=== PATIENT | female | born 1950 | race Caucasian/White ===

== ENCOUNTER → 2017-01-04 | Outpatient (CLI) | payer MEDICARE ==
--- NOTE | 2017-01-09 11:26 | MM ---
Reason for exam: screening (asymptomatic). Last mammogram was performed 1 year and 1 month ago. History: Patient is postmenopausal and had first child at age 31. Family history of breast cancer in paternal aunt at age 50. Took estrogen for 1 year. Took progesterone for 1 year. Physical Findings: A clinical breast exam by your physician is recommended on an annual basis and results should be correlated with mammographic findings. MG 3D Screening Mammo W/Cad Bilateral CC and MLO view(s) were taken. Prior study comparison: December 20, 2015, bilateral MG 3d screening mammo w/cad. December 17, 2014, bilateral MG screening mammo w CAD. November 24, 2013, bilateral digital screening mammo w/CAD. The breast tissue is heterogeneously dense. This may lower the sensitivity of mammography. Finding: There are typically benign round, grouped diffuse/scattered calcifications in both breasts. No significant changes in finding since December 20, 2015, December 17, 2014, and November 24, 2013. ASSESSMENT: Benign, BI-RAD 2 RECOMMENDATION: Routine screening mammogram of both breasts in 1 year.
== END | disposition home or self-care (01) ==
LOC: RADMAMWWP 11:17
PROVIDERS: ATTEND Obstetrics & Gynecology
DX: Z12.31 Encounter for screening mammogram for malignant neoplasm of breast (principal); R92.1 Mammographic calcification found on diagnostic imaging of breast
CPT/HCPCS: 77063; G0202

== ENCOUNTER → 2018-01-10 | Outpatient (CLI) | payer MEDICARE ==
--- NOTE | 2018-01-11 10:43 | MM ---
Reason for exam: screening (asymptomatic). Last mammogram was performed 1 year ago. History: Patient is postmenopausal and had first child at age 31. Family history of breast cancer in paternal aunt at age 50. Took estrogen for 1 year. Took progesterone for 1 year. Physical Findings: A clinical breast exam by your physician is recommended on an annual basis and results should be correlated with mammographic findings. MG 3D Screening Mammo W/Cad Bilateral CC and MLO view(s) were taken. Prior study comparison: January 04, 2017, bilateral MG 3d screening mammo w/cad. December 20, 2015, bilateral MG 3d screening mammo w/cad. The breast tissue is extremely dense which could obscure a lesion on mammography. Finding: There are typically benign round, diffuse/scattered and grouped calcifications in both breasts, greater in the left breast. Asymmetric breast tissue in the left breast is stable. There is no discrete abnormality. Benign bilateral axillary lymph nodes redemonstrated. ASSESSMENT: Benign, BI-RAD 2 RECOMMENDATION: Routine screening mammogram of both breasts in 1 year.
== END | disposition home or self-care (01) ==
LOC: RADMAMWWP 13:48
PROVIDERS: ATTEND Family Medicine
DX: Z12.31 Encounter for screening mammogram for malignant neoplasm of breast (principal)
CPT/HCPCS: 77063; 77067

== ENCOUNTER → 2019-02-17 | Outpatient (CLI) | payer MEDICARE ==
--- NOTE | 2019-02-19 08:52 | MM ---
Reason for exam: screening (asymptomatic). Last mammogram was performed 1 year and 1 month ago. History: Patient is postmenopausal and had first child at age 31. Family history of breast cancer in paternal aunt at age 50. Took estrogen for 1 year. Took progesterone for 1 year. Physical Findings: A clinical breast exam by your physician is recommended on an annual basis and results should be correlated with mammographic findings. MG 3D Screening Mammo W/Cad Bilateral CC and MLO view(s) were taken. Prior study comparison: January 10, 2018, bilateral MG 3d screening mammo w/cad. January 04, 2017, bilateral MG 3d screening mammo w/cad. The breast tissue is heterogeneously dense. This may lower the sensitivity of mammography. Scattered grouped and regional punctate calcifications are unchanged. No significant changes when compared with prior studies. ASSESSMENT: Benign, BI-RAD 2 RECOMMENDATION: Routine screening mammogram of both breasts in 1 year. Patient should continue monthly self breast exams. A negative report should not preclude additional follow up of suspicious palpable abnormalities.
== END | disposition home or self-care (01) ==
LOC: RADMAMWWP 13:37
PROVIDERS: ATTEND Family Medicine
DX: Z12.31 Encounter for screening mammogram for malignant neoplasm of breast (principal)
CPT/HCPCS: 77063; 77067

== ENCOUNTER → 2019-10-24 | Day surgery (SDC) | payer MEDICARE ==
[2019-10-20 09:55] VITALS: BMI 24.6
[~2019-10-24] MED LIST: LACTATED RINGERS 1,000 ML IV SCH; LIDOCAINE 1% (10MG/ML) FOR IV START INTRADERMA PRN; PROPOFOL 10 MG/ML 20 ML VIAL IV ONE
[2019-10-24 13:23] VITALS: RESP 16
--- NOTE | 2019-10-24 14:08 | P.PCN ---
Date of Procedure: 10/24/19 Procedure(s) Performed: BRIEF HISTORY: Patient is a 69-year-old pleasant white female scheduled for an elective colonoscopy as a part of value should of prior history of colon polyps. Last colonoscopy was in 2013 and was noted to have a tubular adenoma PROCEDURE PERFORMED: Colonoscopy. PREOPERATIVE DIAGNOSIS: History of colon polyps. IV sedation per Anesthesia. PROCEDURE: After informed consent was obtained, the patient, was brought into the endoscopy unit. IV sedation was administered by Anesthesia under continuous monitoring. Digital rectal examination was normal. Initially the Olympus CF-160 flexible video colonoscope was then inserted in the rectum, gradually advanced into the cecum without any difficulty. Careful examination was performed as the scope was gradually being withdrawn. Ileocecal valve and the appendiceal orifice were visualized and appeared normal. Prep was poor and several areas of the colon. Thorough irrigation was performed. The colon appeared very tortuous. The cecum could not be adequately visualized because of retained stool in this area.. Mucosa of the ascending colon, transverse colon, descending colon, sigmoid colon, and rectum appeared normal. Retroflexion was performed in the rectum and no lesions were seen. The patient tolerated the procedure well. IMPRESSION: Normal-appearing colon from rectum to cecum with no evidence of colorectal neoplasia Somewhat poor prep in some areas of the colon . RECOMMENDATIONS: Findings of this examination were discussed with the patient as well as a family. She was advised to have a repeat surveillance colonoscopy in 5 years from now because of the prior history of colon polyps.
[2019-10-24 14:33] VITALS: BP 127/81; PULSE 65
== END ==
LOC: ORWHC2ENDO 12:39
PROVIDERS: ATTEND Internal Medicine Gastroenterology
DX: Z12.11 Encounter for screening for malignant neoplasm of colon (principal); Z86.010 Personal history of colon polyps; Q43.8 Other specified congenital malformations of intestine; G43.909 Migraine, unspecified, not intractable, without status migrainosus; J44.9 Chronic obstructive pulmonary disease, unspecified; Z88.0 Allergy status to penicillin; Z87.891 Personal history of nicotine dependence; Z79.899 Other long term (current) drug therapy
CPT/HCPCS: J2704; G0105; 45378

== ENCOUNTER → 2020-05-20 | Outpatient (CLI) | payer MEDICARE ==
--- NOTE | 2020-05-24 08:51 | MM ---
Reason for exam: screening (asymptomatic). Last mammogram was performed 1 year and 3 months ago. History: Patient is postmenopausal, history of other cancer, and had first child at age 31. Family history of breast cancer in paternal aunt at age 50. Took estrogen for 1 year. Took progesterone for 1 year. Physical Findings: A clinical breast exam by your physician is recommended on an annual basis and results should be correlated with mammographic findings. MG 3D Screening Mammo W/Cad Bilateral CC and MLO view(s) were taken. Prior study comparison: February 17, 2019, bilateral MG 3d screening mammo w/cad. January 10, 2018, bilateral MG 3d screening mammo w/cad. The breast tissue is extremely dense which could obscure a lesion on mammography. Finding: There are typically benign skin calcifications in both breasts. No significant changes in finding since February 17, 2019 and January 10, 2018. ASSESSMENT: Benign, BI-RAD 2 RECOMMENDATION: Routine screening mammogram of both breasts in 1 year.
== END | disposition home or self-care (01) ==
LOC: RADMAMWWP 11:48
PROVIDERS: ATTEND Family Medicine
DX: Z12.31 Encounter for screening mammogram for malignant neoplasm of breast (principal)
CPT/HCPCS: 77063; 77067

== ENCOUNTER → 2020-08-20 | Outpatient (CLI) | payer MEDICARE ==
[2020-08-20 16:12] LABS: African American GFR (CKD) >90 (>60 ml/min/1.73 sqM); Blood Urea Nitrogen 15 mg/dL (7-17); Non-African American GFR(CKD) >90 (>60 ml/min/1.73 sqM)
--- NOTE | 2020-08-24 13:06 | CT ---
EXAMINATION TYPE: CT urogram wo/w con DATE OF EXAM: 08/20/2020 HISTORY: Hematuria and frequent UTI's CT DLP: 1208.8mGycm Automated Exposure Control for Dose Reduction was Utilized. CONTRAST: CT scan of the abdomen and pelvis is performed without and with IV Contrast, patient injected with 10 0 mL of Isovue 300. COMPARISON: None FINDINGS: LUNG BASES: The heart is enlarged. Lung bases are clear. LIVER/GB: No significant abnormality is appreciated. PANCREAS: No significant abnormality is seen. SPLEEN: No significant abnormality is seen. ADRENALS: No significant abnormality is seen. KIDNEYS: No hydronephrosis or nephrolithiasis bilaterally. There is normal enhancement of the bilater al kidneys. No solid or cystic mass identified. BOWEL: No significant abnormality is seen. UTERUS/ADNEXA: No gross abnormality seen. LYMPH NODES: No greater than 1cm abdominal or pelvic lymph nodes are appreciated. OSSEOUS STRUCTURES: Small Tarlov cyst involving the sacrum. Hypertrophic and degenerative changes of the spine.. OTHER: No significant additional abnormality is seen. IMPRESSION: 1. No evidence of hydronephrosis, nephrolithiasis or solid or cystic renal mass. No bladder calculi. No filling defect within the visualized renal pelvis or ureter. Bladder limited by artifact from the right hip prostheses demonstrates no gross abnormality.
== END | disposition home or self-care (01) ==
LOC: RADCTMAIN 15:31
PROVIDERS: ATTEND Urology
DX: R31.9 Hematuria, unspecified (principal); Z88.0 Allergy status to penicillin
CPT/HCPCS: 82565; 84520; 74178; 36415; 74400; Q9967

== ENCOUNTER → 2021-06-13 | Outpatient (CLI) | payer MEDICARE ==
--- NOTE | 2021-06-15 10:42 | MM ---
Reason for exam: screening (asymptomatic). Last mammogram was performed 1 year and 1 month ago. History: Patient is postmenopausal, history of other cancer, and had first child at age 31. Family history of breast cancer in paternal aunt at age 50. Took estrogen for 1 year. Took progesterone for 1 year. Physical Findings: A clinical breast exam by your physician is recommended on an annual basis and results should be correlated with mammographic findings. MG 3D Screening Mammo W/Cad Bilateral CC and MLO view(s) were taken. Prior study comparison: May 20, 2020, bilateral MG 3d screening mammo w/cad. February 17, 2019, bilateral MG 3d screening mammo w/cad. January 10, 2018, bilateral MG 3d screening mammo w/cad. The breast tissue is extremely dense which could obscure a lesion on mammography. No significant changes when compared with prior studies. ASSESSMENT: Benign, BI-RAD 2 RECOMMENDATION: Routine screening mammogram of both breasts in 1 year.
== END | disposition home or self-care (01) ==
LOC: RADMAMWWP 13:39
PROVIDERS: ATTEND Family Medicine
DX: Z12.31 Encounter for screening mammogram for malignant neoplasm of breast (principal); Z80.3 Family history of malignant neoplasm of breast; Z78.0 Asymptomatic menopausal state
CPT/HCPCS: 77063; 77067

== ENCOUNTER → 2021-09-21 | Outpatient (CLI) | payer MEDICARE ==
--- NOTE | 2021-09-21 12:53 | CONS ---
CONSULTATION DATE OF SERVICE: 09/21/2021 This 71-year-old lady has been evaluated in Sleep Center for possible obstructive sleep apnea-hypopnea syndrome. HISTORY OF PRESENT ILLNESS/SLEEP-WAKE EVALUATION: The patient had a home sleep test done about 5 years ago, and at that time she was told she had mild abnormalities of respiration. She was not treated at that time. At present, her sleep schedule is from 11:30 p.m. until 8:30 a.m.. She wakes up from sleep up to 6 times with up to 2 episodes of nocturia. She has episodes of awakening also with a racing heart during sleep time. No problems with falling asleep, although she likes to read in the bedroom. She usually sleeps on the side position. According to her , she does not snore. No history of hypnagogic hallucinations, sleep paralysis or cataplexy. During the day, the patient may feel drowsy. [place] Sleepiness Scale, though, is 3. PAST MEDICAL HISTORY: Positive for asthma and sinus problems. PAST SURGICAL HISTORY: Right hip arthroplasty surgery, hernia repair, sinus surgery. SOCIAL HISTORY: Negative for smoking. Alcohol consumption occasional. MEDICATIONS: 1. Montelukast 10 mg once a day. 2. Albuterol if necessary. REVIEW OF SYSTEMS: Multiple awakenings from sleep. No fevers. No double vision. No recent chest pain. No shortness of breath. No abdominal pain. No bleeding episodes. No blood in the urine. No seizure episodes. PHYSICAL EXAMINATION: GENERAL: Pleasant lady without distress. VITAL SIGNS: BP 134/91, HR 73, RR 16, height 5 feet 4-3/4 inches, weight 163 pounds, body mass index 27.3, temperature 96.1, oxygen saturation at room air 99%. HEENT: PERRLA, EOMI, evaluation of oropharynx showed tongue protrudes midline. Low position of soft palate; Mallampati III. NECK: Supple, no JVD. Thyroid is not palpable. Neck measures 16 inches in circumference. LUNGS: Clear to percussion and to auscultation. Good air exchange. No wheezing or rhonchi. HEART: S1, S2 regular. No murmurs, gallops, or rubs. ABDOMEN: Soft and nontender. Bowel sounds are present. No organomegaly appreciated. EXTREMITIES: No clubbing or cyanosis. RAIL SETTER: Awake, alert, and oriented X3. Cranial nerves 2 to 7 intact. There is no fasciculation or atrophy. noted. No focal deficits observed. IMPRESSION: 1. Multiple awakenings from sleep up to 6 times, low position of soft palate, Mallampati III, wide neck, 16 inches in circumference, episodes of sleepiness during the day, history of mild obstructive sleep apnea documented about 5 years ago, according to the patient by home sleep apnea test; obstructive sleep apnea- hypopnea syndrome. 2. Asthma. 3. Sinus problems, status post sinus surgery. 4. Status post right hip arthroplasty. 5. Status post hernia repair. 6. Episodes of palpitations during sleep. PLAN: 1. Polysomnography for evaluation of patient's breathing during sleep. 2. CPAP/BiPAP titration if sleep study confirms obstructive sleep apnea-hypopnea syndrome. 3. Preferable position during sleep on the side. 4. No driving if patient feels any sleepiness. 5. I will see patient for follow up visit to explain results of testing and following plan. Thank you very much for referring this patient for consultation. Sincerely, Won Glez MD, PhD, FAASM Diplomat of [employer] Sleep Medicine Board of [place] [employer]visor [employer] [facility] [place] MMODL / IJN: [id number] /
== END ==
LOC: SLEEP 11:40
PROVIDERS: ATTEND Internal Medicine
DX: G47.33 Obstructive sleep apnea (adult) (pediatric) (principal); J45.909 Unspecified asthma, uncomplicated; J34.9 Unspecified disorder of nose and nasal sinuses; R00.2 Palpitations; Z79.51 Long term (current) use of inhaled steroids; Z87.891 Personal history of nicotine dependence; Z96.641 Presence of right artificial hip joint; Z98.890 Other specified postprocedural states; Z88.1 Allergy status to other antibiotic agents
CPT/HCPCS: 99211

== ENCOUNTER → 2021-11-24 | Outpatient (CLI) | payer MEDICARE ==
--- NOTE | 2021-11-24 19:48 | SFUN ---
SLEEP CENTER FOLLOW UP NOTE DATE OF SERVICE: 11/24/2021 This 71-year-old lady has come to the sleep center to discuss results of her diagnostic polysomnogram and following plan. I discussed results of diagnostic polysomnogram with the patient in detail. Sleep study did not show any significant abnormalities of respiration; normal oxygenation during sleep. At the same time, a significant amount of periodic limb movements was documented: 41.2 times per hour but with only 0.8 microarousals per hour. The patient is not experiencing any significant clinical symptoms related to her leg movements, although she was told by her family that she does have movements of her legs at night. Recently her iron profile was checked, and the level of iron was slightly low; close to border also according to patient. [place] Sleepiness Scale today is 2, which is normal. MEDICATIONS: Montelukast, ipratropium, . PHYSICAL EXAMINATION: GENERAL: Pleasant patient in no distress. VITAL SIGNS: BP 143/96, HR 76, RR 16, weight 163, height 5 feet 5 inches, body mass index 27.5, temperature 98.2, oxygen saturation at room air 98%. HEENT: PERRLA, EOMI, evaluation of oropharynx showed tongue protrudes midline. Low position of soft palate; Mallampati III. NECK: Supple, no JVD. Thyroid is not palpable. LUNGS: Clear to percussion and to auscultation. Good air exchange. No wheezing or rhonchi. HEART: S1, S2 regular. No murmurs, gallops, or rubs. ABDOMEN: Soft and nontender. Bowel sounds are present. No organomegaly appreciated. EXTREMITIES: No clubbing or cyanosis. DIESEL TRUCK TECHNICIAN: Awake, alert, and oriented X3. Cranial nerves 2 to 7 intact. There is no fasciculation or atrophy. noted. No focal deficits observed. IMPRESSION: 1. No significant respiratory abnormalities during the sleep study. 2. Significant periodic limb movements were documented, but only with few microarousals related to leg movements. [place] Sleepiness Scale is normal. The patient does not have clinical complaints of leg movements. 3. Asthma. 4. Sinus problems. 5. Status post right hip arthroplasty. 6. Status post hernia repair. PLAN: 1. Sleep hygiene with regular time in bed for 7-1/2 to 8 hours. 2. Preferable position during sleep is on the side. 3. Iron supplement. 4. We discussed with the patient the possibility of starting pharmacotherapy for periodic limb movements but agreed that for now it is probably not necessary, considering any risk of side effects of medications. 5. No driving if feeling sleepiness; at present no sleepiness. 6. If necessary, follow-up visit in one year. Thank you very much for allowing me to participate in the management of your patient. Sincerely, Won Glez MD, PhD, FAASM Diplomat of [place] [employer] Sleep Medicine Board of [place] [employer] [facility] [place] MMODL / ELLEN: [id number] /
== END ==
LOC: SLEEP 16:30
PROVIDERS: ATTEND Internal Medicine
DX: G47.61 Periodic limb movement disorder (principal); J45.909 Unspecified asthma, uncomplicated; Z96.641 Presence of right artificial hip joint; Z98.890 Other specified postprocedural states; J34.9 Unspecified disorder of nose and nasal sinuses; Z88.1 Allergy status to other antibiotic agents

== ENCOUNTER → 2021-12-19 | Outpatient (CLI) | payer MEDICARE ==
--- NOTE | 2021-12-19 11:40 | P.CON ---
Consult Note - . Consult date: 12/19/21 Assessment/Plan:: HISTORY OF PRESENT ILLNESS: 71 yr old female as a referral from Dr Bell presents today with chronic & severe cervical pain & tingling secondary to disc bulges, neuroforaminal stenoses, facet arthropathy and spinal stenosis for evaluation. Pt states her cervical tingling is 4/10 in intensity, waxes & wanes throughout the day and is exacerbated with extension of the head. It is relieved with medications (Tramadol, Tylenol OTC from Dr Bell), PT in the past, home based stretching regimen at bedtime, massage therapy twice a month, injections of the R NADINE in 06/2021 with 100% pain relief, soft c collar use, repositioning and rest. Past Medical History / Comment(s): Asthma, Migraines, Seasonal Allergies Past Surgical History / Comment(s): Carpal Tunnel Release, Bunionectomy Social History: Never smoker, Occasional ETOH use, No illicit drug use. Family History: Non contributory All: See list Meds: See list REVIEW OF ORGAN SYSTEMS: CONSTITUTIONAL: No fevers or chills. No recent weight loss. HEENT: No visual acuity loss, eye pain, difficulties with hearing. No nosebleeds. No difficulty swallowing. RESPIRATORY: Denies any troubles with breathing or dyspnea on exertion. CARDIOVASCULAR: Denies any chest pain, palpitations, or recent heart attacks. GASTROINTESTINAL: Denies fatty food intolerance. Has change in bowel habits and gas bloat. GENITOURINARY: Denies any blood in urine. Has increased urinary frequency. NEUROLOGICAL: + numbness and tingling along the distal extremities. No seizure disorders or headaches. MUSCULOSKELETAL: + back pain SKIN: No skin cancer. No rash. PSYCHIATRIC: Denies current depression or suicidal thoughts. ENDOCRINE: Denies current thyroid disorders. Denies any blood sugar glucose intolerance. HEME/LYMPHATIC: Denies any lumps and bumps around the neck. History of deep venous thrombosis. ALLERGY/IMMUNOLOGY: No immunoglobulin therapy. No immune deficiencies. BREAST: Denies current breast lumps, pain or nipple discharge. Physical Examinations : Constitutional : Cooperative , not in acute distress . HEENT: Neck supple. No Lymphadenopathy. Normal thyroid size . Eyes no ptosis , no icterus, no photophobia . Hearing intact. Normal oropharynx. No Thrush. Respiratory : Chest clear to auscultations bilaterally. No wheezing. No rhonchi. Cardiovascular : Regular rate and rhythm , S1 / S2. No S3 . No S4. Gastrointestinal : Abdomen soft. No tenderness. Bowel sounds x 4. No organomegaly . Genitourinary : Deferred. Neurologic : Cranial nerve II to XII intact. No focal neurological deficits. Psychiatric : alert & oriented x 3. Matching mood & appropriate affect. Judgment & insight intact. Lymphatic No Lymphadenopathy. Musculoskeletal : Cervical Spine Motor strength in the deltoid and biceps: Normal right side. Normal Left side Motor strength biceps and the wrist extensors: Normal right side . Normal left side Motor strength in the triceps muscle: Normal right side. Normal left side Deep tendon reflexes: Normal at the biceps. Normal at Brachioradialis. Normal at triceps Vertebral body tenderness to palpation over C7 Cervical facet loading test: positive on the right Spurling test: positive bilaterally Neck distraction test: positive bilaterally Oracio sign: positive bilaterally Lumbar spine Motor strength lower extremities ,thigh and legs 5/5 Right side , 5/5 Left side Deep tendon reflexes : Normal Knee Jerk. Normal Ankle Jerk Vertebral body tenderness over Lumbar facet Loading Test: positive Right / positive Left Range of motion of the lumbar spine Flexion 30 degrees, extension 10 degrees Straight Leg Raise test: Left/ Right positive at degree Yumi test: positive right / positive left. Severe tenderness over the Sacroiliac joint on the Right / Left sides Gaenslen test: positive bilaterally Seated flexion test: positive bilaterally. Imaging: MRI without contrast of the cervical spine from 11/24/21 reviewed Assessment/ Plan : Recommendation of R C7-T1 interlaminar DAVID #1. May need a series of injections, up to 3 within a 6 mo period, for optimal pain relief. Risks, benefits of procedure discussed and patient verbalized understanding. Denies aspirin or anti- coagulant use or medical history of diabetes. All questions answered. I have spent greater than 50 minutes on patient care today. Dr Mejia was available by phone for the evaluation of this patient. The time was used to review the medical records including relevant urine studies and Prescription history (MAPs), review of the available imaging, evaluation and examination of the patient, coordination of care with the medical staff and if applicable referring physicians, as well as creation of the medical record PQRS Measure Charge Sheet PQRS Narrative: Smoking Status Former smoker Home Medications: Ambulatory Orders Fexofenadine HCl [Sherrell Allergy] 180 mg PO DAILY 12/13/13 Rizatriptan Benzoate [Maxalt] 10 mg PO BID PRN 12/13/13 Albuterol Inhaler (Mhu) [Ventolin Hfa Inhaler] 1 - 2 puff INHALATION Q6HR PRN 02/01/16 Triamcinolone Acetonide [Nasacort] 2 sprays EA NOSTRIL DAILY 02/01/16 Montelukast [Singulair] 10 mg PO DAILY 02/04/16 Ascorbic Acid [Vitamin C] 500 mg PO DAILY 10/20/19 Cholecalciferol [Vitamin D3 (25 Mcg = 1000 Iu)] 1,000 unit PO DAILY 10/20/19 Cyanocobalamin (Vitamin B-12) [Vitamin B-12] 2,500 mcg PO DAILY 10/20/19 Folic Acid 0.8 mg PO DAILY 10/20/19 Glucosamine Sulfate 500 mg PO DAILY 10/20/19 Ipratropium [place] [Ipratropium [place] 0.03%] 2 sprays EA NOSTRIL DAILY 10/20/19
[2021-12-19 11:44] VITALS: BP 140/79; PULSE 73; RESP 18
== END ==
LOC: PNWHC3 11:06
PROVIDERS: ATTEND Specialist
DX: M48.02 Spinal stenosis, cervical region (principal); M47.812 Spondylosis without myelopathy or radiculopathy, cervical region; M50.20 Other cervical disc displacement, unspecified cervical region; J45.909 Unspecified asthma, uncomplicated; G43.909 Migraine, unspecified, not intractable, without status migrainosus; G89.29 Other chronic pain; Z87.891 Personal history of nicotine dependence; Z88.1 Allergy status to other antibiotic agents
CPT/HCPCS: 99211

== ENCOUNTER 2022-01-26 08:24 | Day surgery (SDC) | payer MEDICARE ==
[2022-01-26 08:49] VITALS: RESP 16; TEMP 98.1
[2022-01-26] MEDS ORDERED: LACTATED RINGERS 1,000 ML IV ONE (08:55)
[2022-01-26] MEDS ORDERED: LACTATED RINGERS 1,000 ML IV SCH (09:01)
[2022-01-26] MEDS ORDERED: LIDOCAINE 1% (10MG/ML) FOR IV START INTRADERMA PRN (09:01)
[2022-01-26] MEDS ORDERED: MIDAZOLAM 2 MG/2 ML VIAL ONE (09:04)
[2022-01-26] MEDS ORDERED: DEXAMETHASONE SOD PHOSPHATE 10 MG/ML 1 ML VIAL ONE (09:04)
[2022-01-26] MEDS ORDERED: IOPAMIDOL M200 10 ML VIAL ONE (09:04)
[2022-01-26] MEDS ORDERED: fentaNYL (PF) 50 MCG/ML 2 ML AMP ONE (09:04)
--- NOTE | 2022-01-26 09:22 | P.PCN ---
Date of Procedure: 01/26/22 Procedure(s) Performed: . PROCEDURE 1. Cervical epidural steroid injection under fluoroscopic guidance, C7-T1 (fluoroscopy images available in the radiology department ) 2. Cervical epidurogram. PREOPERATIVE DIAGNOSIS: 1- Cervical Degenerative Disc Diseases . POSTOPERATIVE DIAGNOSIS: : 1- Cervical Degenerative Disc Diseases . ANESTHESIA: Local anesthesia with lidocaine 1 % , and moderate sedation, with Versed 1 mg and Fentanyl 50 mcg. EBL 0 PROCEDURE INDICATION: The patient with neck pain and radiculitis unresponsive to conservative treatment consents for procedure. PROCEDURE DESCRIPTION / TECHNIQUE: The patient was seen and identified in the preoperative area. Risks, benefits, complications, including but not limited to infections ,bleeding , allergic reactions to the medications ,and not complete pain releife, and alternatives were discussed with the patient, the patient agreed to proceed with the procedure and signed the consent. Patient was taken to the OR and time out was completed. The patient was placed in the prone position on the procedure table. A pillow was placed under the patients chest to increase the cervical interlaminar space. The cervical area was prepped and draped in the usual sterile fashion. Vital signs were closely monitored during the procedure. Conscious sedation was used during the procedure to decrease patients anxiety. Using anterior-posterior fluoroscopy, the C7-T1 interlaminar space was identified and the skin over this site was marked and then infiltrated with 1% lidocaine subcutaneously. Subsequently, a 20-gauge 3-1/2-inch Tuohy epidural needle was inserted and advanced toward the epidural space by means of the ``hanging-drop technique and guided by AP and lateral fluoroscopy. The correct needle position in the epidural space was verified with the injection of 2 mL of the water soluble contrast dye Isovue-200 and observing an excellent epidurogram with the epidural spread of the dye, after negative aspiration for blood and CSF and in the absence of paresthesias. then, mixture containing 15 mg Dexamethasone and 2 ml of preservative-free normal saline injected and a washout of epidurogram was seen. Needle was withdrawn intact, skin was cleansed, and bandages were applied. Complications= none. Disposition= patient was placed in supine position and transferred to the recovery room area in stable condition and there was no evidence of upper or lower extremity motor or sensory deficit after the procedure patient was discharged from recovery room after discharge criteria met and home discharge instructions was given by the staff and patient will follow with the pain clinic in 2-4 weeks
[2022-01-26] MEDS ORDERED: IV FLUID CONTINUATION 1,000 ML IV ONE (09:25)
[2022-01-26 09:30] VITALS: BP 127/88; PULSE 59
--- NOTE | 2022-01-26 11:25 | FL ---
Fluoroscopy HISTORY: Pain 3 seconds fluoroscopy time supplied to the referring clinician. 2 intraoperative C-arm images docume nt the procedure. See dictated report from anesthesia.
== END 2022-01-26 10:02 | disposition home or self-care (01) ==
LOC: ORPAIN 08:24
PROVIDERS: ATTEND Specialist
DX: M50.13 Cervical disc disorder with radiculopathy, cervicothoracic region (principal); Z88.0 Allergy status to penicillin
CPT/HCPCS: 62321; J2250; J1100; J3010; Q9966; 99152

== ENCOUNTER → 2022-02-16 | Outpatient (CLI) | payer MEDICARE ==
[2022-02-16 11:33] VITALS: BP 136/91; PULSE 71; RESP 18
--- NOTE | 2022-02-16 11:42 | P.PAINPG ---
PQRS Measure Charge Sheet Comment: A 71 yr old female with a history of severe and chronic neck pain secondary to cervical degenerative disc diseases and spondylosis with facet arthropathy presents today for evaluation s/p NADINE C7-T1 #1. Pt states she experienced 20% pain relief s/p procedure. Pain level is currently at 1/10 in intensity but escalates as high as 7/10 with migraines. It is constant, achy in the lower aspect of her cervical spine and associated with RUE tingling. Pain is provoked by cervical flexion. Pain is alleviated with PT in 2019, use of a soft C collar, home guided stretches, massage therapy prn, heat, medications (Tylenol, Tramadol), repositioning and rest. Interventional pain procedures completed include NADINE C7-T1 x 1. Patient is currently on Tramadol prn, Tylenol OTC Patient denies any side effects of the medication(s), denies excessive drowsiness or sleepiness, denies suicidal ideation and reports that the current pain medication is helping to control the pain and improve activities of daily living. Patient denies any motor or sensory deficits. Patient denies any fever or night sweats, denies any change in the bowel movements or urination. Physical Examination: -Constitutional: Cooperative. Not in acute distress . - Neurologic: Cranial nerve II to XII intact. No focal neurological deficits. - Psychatric: Alert & oriented x 3. Matching mood & appropriate affect. Judgment and insight intact. - Musculoskeletal: Cervical spine: Muscle bulk/ tone/ strength in the bilateral upper extremities normal Vertebral body tenderness to palpation C4, C5, C6, C7 Spurling test positive Distraction test positive Facet loading test positive Thoracic spine Muscle bulk / tone/ strength in the bilateral paraspinal muscles normal Vertebral body tender to palpation over Facet loading test positive Lumbar spine: Motor bulk/ tone/ strength lower extremities , thigh and legs : 5/5 Deep tendon reflexes : Normal Knee Jerk. Normal Ankle Jerk . Vertebral body tenderness to palpation over Lumbar Facet Loading Test positive Straight Leg Raise: positive at 30 degrees right side/ left side Gaenslen's Test positive Sacral spine : Severe tenderness over the Sacroiliac joint: right side / left side Range of motion: Flexion of the lumbar spine <60 degrees Range of motion: Extension of the lumbar spine <20 degrees Gaenslen's Test positive Garland's Test positive Yumi test: positive right side / left side Thigh Thrust Test Sacral Thrust Test Assessment and plan: Chronic low back pain secondary to lumbar degenerative disc disease , lumbar spondylosis with facet arthropathy without myelopathy Pt did not experience sufficient pain relief s/p procedure. She though feels that she will experience pain relief in her neck several weeks from now as that has been the case at another doctor's office she frequented in the past for ESIs. She complains of excess lumbar pain for the time being and will follow up with [facility] for pain management at this time. Risks, benefits of procedure discussed and pt verbalized understanding. Denies anticoagulant use or medical history of diabetes. All patient questions answered MAPS reviewed and it was appropriate. I have spent less than 30 minutes on patient care today. Dr Mejia was available by phone for the evaluation of this patient. The time was used to review the medical records including relevant urine studies and Prescription history (MAPs), review of the available imaging, evaluation and examination of the patient, coordination of care with the medical staff and if applicable referring physicians, as well as creation of the medical record PQRS Narrative: Smoking Status Former smoker Hx Alcohol Use (MH) No Home Medications: Ambulatory Orders Rizatriptan Benzoate [Maxalt] 10 mg PO BID PRN 12/13/13 Albuterol Inhaler [Ventolin Hfa Inhaler] 1 - 2 puff INHALATION Q6HR PRN 02/01/16 Triamcinolone Acetonide [Nasacort] 2 sprays EA NOSTRIL DAILY 02/01/16 Montelukast [Singulair] 10 mg PO DAILY 02/04/16 Ascorbic Acid [Vitamin C] 500 mg PO DAILY 10/20/19 Cholecalciferol [Vitamin D3 (25 Mcg = 1000 Iu)] 1,000 unit PO DAILY 10/20/19 Cyanocobalamin (Vitamin B-12) [Vitamin B-12] 2,500 mcg PO DAILY 10/20/19 Folic Acid 0.8 mg PO DAILY 10/20/19 Glucosamine Sulfate 500 mg PO DAILY 10/20/19 Ipratropium [place] [Ipratropium [place] 0.03%] 2 sprays EA NOSTRIL DAILY 10/20/19 Levocetirizine Dihydrochloride [Xyzal] 2.5 mg PO DAILY 01/26/22 Controlled Substance Measures - Controlled Substance Measures Is patient prescribed a controlled substance at discharge?: No
== END ==
LOC: PNWHC3 11:12
PROVIDERS: ATTEND Specialist
DX: M47.816 Spondylosis without myelopathy or radiculopathy, lumbar region (principal); M51.36 Other intervertebral disc degeneration, lumbar region; G89.29 Other chronic pain; Z87.891 Personal history of nicotine dependence; Z88.1 Allergy status to other antibiotic agents
CPT/HCPCS: 99211

== ENCOUNTER → 2022-03-06 | Outpatient (CLI) | payer MEDICARE | END | disposition home or self-care (01) | LOC: LABWHC1 15:08 | PROVIDERS: ATTEND Family Medicine | DX: Z20.822 Contact with and (suspected) exposure to COVID-19 (principal); Z76.89 Persons encountering health services in other specified circumstances | CPT/HCPCS: U0003; C9803; U0005 ==

== ENCOUNTER 2022-05-03 02:15 | Emergency (ER) | payer MEDICARE ==
[2022-05-03 02:27] VITALS: RESP 18
[2022-05-03] MEDS ORDERED: SODIUM CHLORIDE 0.9% 1,000 ML IV STA (02:40)
[2022-05-03] MEDS ORDERED: ONDANSETRON 4 MG/2 ML VIAL IVP STA (02:40)
[2022-05-03] MEDS ORDERED: FAMOTIDINE 20 MG/2 ML VIAL IV STA (02:41)
--- NOTE | 2022-05-03 02:46 | ED ---
Nausea/Vomiting/Diarrhea HPI - General Chief complaint: Nausea/Vomiting/Diarrhea Stated complaint: NVD Time Seen by Provider: 05/03/22 02:27 Source: patient, family, RN notes reviewed Mode of arrival: wheelchair Limitations: no limitations - History of Present Illness Initial comments: Patient presents to the emergency department a few hours after she started having nausea, vomiting, and some diarrhea. Patient states she believes it is related to the amoxicillin/clavulanic acid she took earlier this evening. Patient states she was prescribed earlier today because she had a staph infection on the right side of her nose. Patient went to her ENT doctor and was diagnosed with this. Patient states that the only other time she reacted to a medication like this is when she took Augmentin. I did inform the patient that amoxicillin/clavulanic action is actually Augmentin. Patient stating that the pharmacy should've had this on record. Patient denies any other medication ALLERGIES. No exposures. Patient states she was feeling fine prior to antibiotic ingestion. No fever or chills. Patient is complaining of some continued nausea and some discomfort in her epigastric area. Patient denies any hematemesis or coffee-ground emesis. No melena or hematochezia. Denies chest pain or shortness of breath. No headache, no fever or chills, no changes in vision or hearing, no sore throat or difficulty with speech, no neck pain, no chest pain or shortness of breath, no changes in urination or bowel movements, no numbness or tingling, no extremity pain, no skin rashes or lesions. Past medical, surgical, social, and family history reviewed. MD complaint: nausea, vomiting - Related Data Home Medications Medication Instructions Recorded Confirmed Rizatriptan Benzoate [Maxalt] 10 mg PO BID PRN 12/13/13 02/16/22 Albuterol Inhaler [Ventolin Hfa 1 - 2 puff INHALATION Q6HR PRN 02/01/16 02/16/22 Inhaler] Triamcinolone Acetonide [Nasacort] 2 sprays EA NOSTRIL DAILY 02/01/16 02/16/22 Montelukast [Singulair] 10 mg PO DAILY 02/04/16 02/16/22 Ascorbic Acid [Vitamin C] 500 mg PO DAILY 10/20/19 02/16/22 Cholecalciferol [Vitamin D3 (25 1,000 unit PO DAILY 10/20/19 02/16/22 Mcg = 1000 Iu)] Cyanocobalamin (Vitamin B-12) 2,500 mcg PO DAILY 10/20/19 02/16/22 [Vitamin B-12] Folic Acid 0.8 mg PO DAILY 10/20/19 02/16/22 Glucosamine Sulfate 500 mg PO DAILY 10/20/19 02/16/22 Ipratropium [place] [Ipratropium 2 sprays EA NOSTRIL DAILY 10/20/19 02/16/22 [place] 0.03%] Levocetirizine Dihydrochloride 2.5 mg PO DAILY 01/26/22 02/16/22 [Xyzal] Previous Rx's Medication Instructions Recorded Doxycycline [Vibramycin] 100 mg PO BID 1 Days #20 each 05/03/22 Allergies Allergy/AdvReac Type Severity Reaction Status Date / Time amoxicillin trihydrate Allergy Unknown Verified 05/03/22 02:26 [From Augmentin] potassium clavulanate Allergy SEVERE Verified 05/03/22 02:26 [From Augmentin] VOMITING Review of Systems ROS Statement: Those systems with pertinent positive or pertinent negative responses have been documented in the HPI. ROS Other: All systems not noted in ROS Statement are negative. Past Medical History Past Medical History: Asthma, Osteoarthritis (OA), Skin Disorder Additional Past Medical History / Comment(s): MIGRAINES, seasonal ALLERGIES, Rosacea History of Any Multi-Drug Resistant Organisms: None Reported Past Surgical History: Joint Replacement, Orthopedic Surgery Additional Past Surgical History / Comment(s): CARPAL TUNNEL (Bilateral), BUNIONECTOMY (left), RIGHT HAND, TRIGGER FINGER, GANGLION CYST RIGHT WRIST,. rt hip replacement Past Anesthesia/Blood Transfusion Reactions: No Reported Reaction Past Psychological History: No Psychological Hx Reported Smoking Status: Never smoker Past Alcohol Use History: Daily Past Drug Use History: None Reported - Past Family History Mother Family Medical History: No Reported History General Exam - General Exam Comments Initial Comments: Vital signs stable, patient afebrile. Patient appears to be adequately hydrated with adequate skin turgor. No mottling. Capillary refill less than 2 seconds Limitations: no limitations General appearance: alert, in no apparent distress, in distress (Mild) Head exam: Present: atraumatic, normocephalic, normal inspection Eye exam: Present: normal appearance, PERRL, EOMI. Absent: scleral icterus, conjunctival injection, periorbital swelling ENT exam: Present: normal exam, normal oropharynx, mucous membranes moist, TM's normal bilaterally, other (Patient has mild erythema to the right side of her nasal soft tissue. No evidence of sinusitis. No evidence of erythema or abnormality in the dangerous triangle.). Absent: mucous membranes dry, normal external ear exam Neck exam: Present: normal inspection, full ROM. Absent: tenderness, meningismus, lymphadenopathy Respiratory exam: Present: normal lung sounds bilaterally. Absent: respiratory distress, wheezes, rales, rhonchi, stridor Cardiovascular Exam: Present: regular rate, normal rhythm, normal heart sounds. Absent: systolic murmur, diastolic murmur, rubs, gallop, clicks GI/Abdominal exam: Present: soft, tenderness (Very minimal tenderness in the epigastrium. No rebound or percussion tenderness.), hyperactive bowel sounds. Absent: distended, guarding, rebound, rigid Extremities exam: Present: normal inspection, full ROM, normal capillary refill. Absent: tenderness, pedal edema, joint swelling, calf tenderness Back exam: Present: normal inspection Neurological exam: Present: alert, oriented X3, CN II-XII intact Psychiatric exam: Present: normal affect, normal mood Skin exam: Present: warm, dry, intact, normal color. Absent: rash Course Vital Signs 05/03/22 02:25 Temperature 97.8 F Pulse Rate 81 Respiratory 18 Rate Blood Pressure 125/84 O2 Sat by Pulse 94 L Oximetry - Reevaluation(s) Reevaluation #1: 05/03/22 03:38 Medical record is reviewed Symptoms are improved here in the emergency department Patient is informed of results and questions answered Patient in no distress Medical Decision Making - Medical Decision Making Discontinue Augmentin, Zofran starter pack. Patient in no distress at discharge. We'll start the patient on doxycycline for the mild nasal cellulitis. Patient to follow-up with her ENT doctor. Patient concurs with this treatment plan. The case was discussed in detail with ED attending physician. Presentation, f mableings, treatment plan discussed in detail. The patient's CMP and lipase were hemolyzed and had to be redrawn. I did discuss this with the patient. Patient did not want to wait at least come back. Patient was feeling much better. Patient's troponin was negative. EKG was normal. I suspect the patient was reacting to the Augmentin. Patient lucid, alert and oriented, able medical medical decisions. Patient released with her in no acute distress. I did tell the patient that those pending laboratory values can be obtained by her regular physician. Patient was told to return to the ER for any signs or symptoms worsen. Told to return immediately if any other problems arise. All questions answered. Treatment plan discussed. Patient in agreement Every effort has been made to ensure accuracy of this dictation. However, due to the limitations of electronic medical records and dictation devices, errors in charting still occur. 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 Phillips - Lab Data Result diagrams: 05/03/22 03:03 Lab Results 05/03/22 05/03/22 Range/Units 03:03 03:03 WBC 6.3 (3.8-10.6) k/uL RBC 4.67 (3.80-5.40) m/uL Hgb 15.5 (11.4-16.0) gm/dL Hct 46.9 H (34.0-46.0) % MCV 100.4 H (80.0-100.0) fL MCH 33.3 (25.0-35.0) pg MCHC 33.1 (31.0-37.0) g/dL RDW 12.8 (11.5-15.5) % Plt Count 146 L (150-450) k/uL MPV 8.8 Troponin I 0.028 (0.000-0.034) ng/mL - EKG Data EKG Comments: EKG done at 2:57 AM and read by the ED attending physician reveals sinus rhythm with a rate of 74, normal intervals, normal axis, normal QRS morphology. No evidence of acute ST elevation or ST depression. - Radiology Data Radiology results: report reviewed, image reviewed Disposition Clinical Impression: Medication reaction, Acute vomiting, Cellulitis of nose Disposition: HOME SELF-CARE Condition: Good Instructions (If sedation given, give patient instructions): Acute Nausea and Vomiting (ED), Cellulitis (ED) Additional Instructions: Probable reaction to Augmentin. Discontinue Augmentin and start doxycycline tomorrow. Also apply warm compresses to your nose, 5-10 minutes at a time 4 times daily. You can use Zofran ODT 1 tablet every 8 hours if nausea recurs. Try to adhere to clear liquids for the next 12 hours. Advance diet thereafter. Follow-up with your regular physician as directed. Return to the ER immediately if any symptoms worsen, new symptoms arise, or any other problems develop. Prescriptions: Doxycycline [Vibramycin] 100 mg PO BID 1 Days #20 each Is patient prescribed a controlled substance at d/c from ED?: No Referrals: Eder Allen DO [Primary Care Provider] - 1-2 days Time of Disposition: 03:43
[2022-05-03 03:17] LABS: HCT 46.9 % (34.0-46.0); HGB 15.5 gm/dL (11.4-16.0); MCH 33.3 pg (25.0-35.0); MCHC 33.1 g/dL (31.0-37.0); MCV 100.4 fL (80.0-100.0); Mean Platelet Volume 8.8; RBC 4.67 m/uL (3.80-5.40); RDW 12.8 % (11.5-15.5); WBC 6.3 k/uL (3.8-10.6)
--- NOTE | 2022-05-03 03:27 | XR ---
EXAMINATION TYPE: XR abdomen acute w cxr DATE OF EXAM: 05/03/2022 COMPARISON: NONE HISTORY: Abdominal pain TECHNIQUE: 4 views FINDINGS: Heart and mediastinum are normal. The lungs are clear of consolidation. There are no hilar masses. Costophrenic angles are clear. The bowel gas pattern is normal. No sign of intestinal obstruc tion or pneumoperitoneum. There is right hip prosthesis. No pathologic calcification over the kidneys . IMPRESSION: Nonacute abdomen. Normal chest.
[2022-05-03] MEDS ORDERED: ONDANSETRON 4 MG ODT STARTER PACK 2 TAB BTL PO STA (03:47)
[2022-05-03 03:48] LABS: Large Platelets Present
[2022-05-03 03:55] LABS: Band Neutrophils % 8 %; Monocytes # (M) 0.13 k/uL (0-1.0); Neutrophils % (M) 82 %; Nucleated Red Blood Cells 0 /100 WBC (0-0); Total Cells Counted 100
[2022-05-03 04:03] VITALS: BP 121/76; PULSE 87; TEMP 97.7
[2022-05-03 04:09] LABS: ALT 10 U/L (4-34); AST 26 U/L (14-36); African American GFR (CKD) >90 (>60 ml/min/1.73 sqM); Albumin 3.7 g/dL (3.5-5.0); Alkaline Phosphatase 69 U/L (38-126); Anion Gap 13 mmol/L; Blood Urea Nitrogen 11 mg/dL (7-17); Carbon Dioxide 18 mmol/L (22-30); Chloride 110 mmol/L (98-107); Glucose 97 mg/dL (74-99); Lipase 80 U/L (23-300); Non-African American GFR(CKD) >90 (>60 ml/min/1.73 sqM); Potassium 3.8 mmol/L (3.5-5.1); Sodium 141 mmol/L (137-145); Total Bilirubin 0.4 mg/dL (0.2-1.3); Total Protein 5.9 g/dL (6.3-8.2)
== END 2022-05-03 04:08 | disposition home or self-care (01) ==
LOC: EC 02:15
DX: R11.2 Nausea with vomiting, unspecified (principal); L03.211 Cellulitis of face; Z91.14 Patient's other noncompliance with medication regimen
CPT/HCPCS: 36415; 80053; 83690; 84484; 85025; 74022; 96374; 96375; 96361; 99284; J2405; S0119; 93005

== ENCOUNTER → 2022-07-21 | Outpatient (CLI) | payer MEDICARE ==
--- NOTE | 2022-07-24 10:56 | MM ---
Reason for Exam: Screening (asymptomatic). Last mammogram was performed 1 year(s) and 1 month(s) ago. Patient History: Menarche at age 11. First Full-Term at age 31. Late child-bearing (after 30). Postmenopausal. Other cancer. Patient used Estrogen for 1 year. Patient used Progesterone for 1 year. Paternal aunt had breast cancer, age 50. Risk Values: [place] 5 year model risk: 2.4%. NCI Lifetime model risk: 5.9%. Prior Study Comparison: 02/17/2019 Bilateral Screening Mammogram, [facility]. 05/20/2020 Bilateral Screening Mammogram, [facility]. 06/13/2021 Bilateral Screening Mammogram, [facility]. Tissue Density: The breast tissue is heterogeneously dense. This may lower the sensitivity of mammography. Findings: Analyzed By CAD. Grouped calcifications within the left breast middle/posterior depth, posterior nipple line on CC view, approximately 5.6 cm from the nipple. Not definitely seen on MLO view. No suspicious masses calcifications or distortions within the right breast. Overall Assessment: Incomplete: need additional imaging evaluation, BI-RAD 0 Management: Diagnostic Mammogram of the left breast. A clinical breast exam by your physician is recommended on an annual basis and results should be correlated with mammographic findings. [facility] will attempt to contact patient to return for supplemental views and ultrasound if indicated. Electronically signed and approved by: Dedrick Head DO
== END | disposition home or self-care (01) ==
LOC: RADMAMWWP 11:51
PROVIDERS: ATTEND Family Medicine
DX: Z12.31 Encounter for screening mammogram for malignant neoplasm of breast (principal); Z78.0 Asymptomatic menopausal state; Z80.3 Family history of malignant neoplasm of breast
CPT/HCPCS: 77063; 77067

== ENCOUNTER → 2022-07-27 | Outpatient (CLI) | payer MEDICARE ==
--- NOTE | 2022-07-27 15:27 | MM ---
Reason for Exam: Additional evaluation requested from abnormal screening. Last screening mammogram was performed less than 1 month ago. Patient History: Menarche at age 11. First Full-Term at age 31. Late child-bearing (after 30). Postmenopausal. Patient has history of breast feeding. Patient used Estrogen for 1 year. Patient used Progesterone for 1 year. Paternal aunt had breast cancer, age 50. Risk Values: [place] 5 year model risk: 2.4%. NCI Lifetime model risk: 5.9%. Prior Study Comparison: 05/20/2020 Bilateral Screening Mammogram, [facility]. 06/13/2021 Bilateral Screening Mammogram, [facility]. 07/21/2022 Bilateral MG 3D screening mammo w/cad, [facility]. Tissue Density: Left: The breast tissue is extremely dense which could obscure a lesion on mammography. Findings: Analyzed By CAD. Magnification compression views were obtained. Indistinct calcifications may be at the location of suspected calcifications within the left breast on the craniocaudal projection. Additional calcifications may be inferiorly on the medial lateral projection. However, magnification views do not identify these calcifications. Short-term follow-up is recommended. Overall Assessment: Probably benign, BI-RAD 3 Management: Diagnostic Mammogram of the left breast in 3 months. A clinical breast exam by your physician is recommended on an annual basis and results should be correlated with mammographic findings. This exam should not preclude additional follow-up of suspicious palpable abnormalities. Results were given to the patient verbally at the time of exam. Electronically signed and approved by: Eder Morales D.O. Radiologis
== END | disposition home or self-care (01) ==
LOC: RADMAMWWP 14:19
PROVIDERS: ATTEND Family Medicine
DX: R92.8 Other abnormal and inconclusive findings on diagnostic imaging of breast (principal); Z78.0 Asymptomatic menopausal state; Z80.3 Family history of malignant neoplasm of breast
CPT/HCPCS: 77065; G0279; 77061

== ENCOUNTER → 2022-11-28 | Outpatient (CLI) | payer MEDICARE ==
--- NOTE | 2022-11-28 14:46 | MM ---
Reason for Exam: Follow-up at short interval from prior study. Last screening mammogram was performed 4 month(s) ago. Patient History: Menarche at age 11. First Full-Term at age 31. Late child-bearing (after 30). Postmenopausal. Patient has history of breast feeding. Patient used Estrogen for 1 year. Patient used Progesterone for 1 year. Paternal aunt had breast cancer, age 50. Risk Values: [place] 5 year model risk: 2.4%. NCI Lifetime model risk: 5.9%. Prior Study Comparison: 06/13/2021 Bilateral Screening Mammogram, [facility]. 07/21/2022 Bilateral MG 3D screening mammo w/cad, [facility]. 07/27/2022 Left MG 3D work up w/cad , [facility]. Tissue Density: Left: The breast tissue is extremely dense which could obscure a lesion on mammography. Findings: Analyzed By CAD. A few benign-appearing tiny round calcifications in the left breast are redemonstrated. Benign-appearing left axillary lymph nodes again seen. No suspicious new mass or worrisome group of microcalcification in the left breast. Overall Assessment: Benign, BI-RAD 2 Management: Screening Mammogram of both breasts in 8 months. Back on schedule. Results were given to the patient verbally at the time of exam. Electronically signed and approved by: Eric Penaloza M.D.
== END | disposition home or self-care (01) ==
LOC: RADMAMWWP 14:07
PROVIDERS: ATTEND Family Medicine
DX: R92.8 Other abnormal and inconclusive findings on diagnostic imaging of breast (principal); Z78.0 Asymptomatic menopausal state; Z80.3 Family history of malignant neoplasm of breast
CPT/HCPCS: 77065; G0279; 77061

== ENCOUNTER 2023-03-01 11:36 | Emergency (ER) | payer MEDICARE ==
[2023-03-01 11:54] VITALS: TEMP 98.3
--- NOTE | 2023-03-01 13:37 | ED ---
Eye Problem HPI - General Chief complaint: Eye Problems Stated complaint: [facility] Time Seen by Provider: 03/01/23 13:11 Source: patient Mode of arrival: ambulatory Limitations: no limitations - History of Present Illness Initial comments: Patient is a 72-year-old female presenting to the emergency room with her spouse with complaints of bilateral conjunctivitis that has been ongoing for several weeks despite treatment by 2 different urgent cares and her systems requirements planner; she does not follow with an security management specialist. She was placed on a short course of prednisone drops and states that symptoms did improve while she was on these medications but quickly returned after completion of the drops. She reports that she is also concerned regarding her elevated blood pressure recently she does not have a history of hypertension. She reports no known allergens or irritants. She does state that symptoms began approximately 1 week after having Covid with her other symptoms from Covid resolving just prior to her symptoms. She has a past medical history significant for asthma, arthritis, migraines and rosacea. - Related Data Home Medications Medication Instructions Recorded Confirmed Rizatriptan Benzoate [Maxalt] 10 mg PO BID PRN 12/13/13 02/16/22 Albuterol Inhaler [Ventolin Hfa 1 - 2 puff INHALATION Q6HR PRN 02/01/16 02/16/22 Inhaler] Triamcinolone Acetonide [Nasacort] 2 sprays EA NOSTRIL DAILY 02/01/16 02/16/22 Montelukast [Singulair] 10 mg PO DAILY 02/04/16 02/16/22 Ascorbic Acid [Vitamin C] 500 mg PO DAILY 10/20/19 02/16/22 Cholecalciferol [Vitamin D3 (25 1,000 unit PO DAILY 10/20/19 02/16/22 Mcg = 1000 Iu)] Cyanocobalamin (Vitamin B-12) 2,500 mcg PO DAILY 10/20/19 02/16/22 [Vitamin B-12] Folic Acid 0.8 mg PO DAILY 10/20/19 02/16/22 Glucosamine Sulfate 500 mg PO DAILY 10/20/19 02/16/22 Ipratropium Van [Ipratropium 2 sprays EA NOSTRIL DAILY 10/20/19 02/16/22 Van 0.03%] Levocetirizine Dihydrochloride 2.5 mg PO DAILY 01/26/22 02/16/22 [Xyzal] Previous Rx's Medication Instructions Recorded Doxycycline [Vibramycin] 100 mg PO BID 1 Days #20 each 05/03/22 prednisoLONE ACETATE 1% OPHTH 2 drops BOTH EYES Q6HR 10 Days #15 03/01/23 [Pred Forte 1%] ml Allergies Allergy/AdvReac Type Severity Reaction Status Date / Time amoxicillin trihydrate Allergy Unknown Verified 03/01/23 11:42 [From Augmentin] potassium clavulanate Allergy SEVERE Verified 03/01/23 11:42 [From Augmentin] VOMITING Review of Systems ROS Statement: Those systems with pertinent positive or pertinent negative responses have been documented in the HPI. ROS Other: All systems not noted in ROS Statement are negative. Past Medical History Past Medical History: Asthma, Osteoarthritis (OA), Skin Disorder Additional Past Medical History / Comment(s): MIGRAINES, seasonal ALLERGIES, Rosacea History of Any Multi-Drug Resistant Organisms: None Reported Past Surgical History: Joint Replacement, Orthopedic Surgery Additional Past Surgical History / Comment(s): CARPAL TUNNEL (Bilateral), BUNIONECTOMY (left), RIGHT HAND, TRIGGER FINGER, GANGLION CYST RIGHT WRIST,. rt hip replacement Past Anesthesia/Blood Transfusion Reactions: No Reported Reaction Past Psychological History: No Psychological Hx Reported Smoking Status: Never smoker Past Alcohol Use History: Daily Past Drug Use History: None Reported - Past Family History Mother Family Medical History: No Reported History General Exam Limitations: no limitations General appearance: alert, in no apparent distress Head exam: Present: atraumatic, normocephalic, normal inspection Eye exam: Present: normal appearance, PERRL, EOMI, conjunctival injection, periorbital swelling (trace bilateral), other (no exudate). Absent: scleral icterus, nystagmus ENT exam: Present: normal exam, mucous membranes moist Neck exam: Present: normal inspection, full ROM Respiratory exam: Absent: respiratory distress, accessory muscle use Cardiovascular Exam: Present: regular rate GI/Abdominal exam: Present: soft. Absent: distended, tenderness, guarding, rebound, rigid Extremities exam: Present: normal inspection, full ROM. Absent: pedal edema, joint swelling Back exam: Present: normal inspection, full ROM Neurological exam: Present: alert, oriented X3, CN II-XII intact Psychiatric exam: Present: normal affect, normal mood Skin exam: Present: other (Erythema and scleral injection as above otherwise skin warm, dry and intact) Course Vital Signs 03/01/23 03/01/23 11:43 13:50 Temperature 98.3 F Pulse Rate 72 70 Respiratory 16 18 Rate Blood Pressure 175/123 142/97 O2 Sat by Pulse 100 93 L Oximetry Medical Decision Making - Medical Decision Making Was pt. sent in by a medical professional or institution (, VIDHI, MANAGER CRISIS, urgent care, hospital, or usp...) When possible be specific @ -No Did you speak to anyone other than the patient for history (EMS, parent, family, police, friend...)? What history was obtained from this source @ -No Did you review nursing and triage notes (agree or disagree)? Why? @ -I reviewed and agree with nursing and triage notes Were old charts reviewed (outside hosp., previous admission, EMS record, old EKG, old radiological studies, urgent care reports/EKG's, usp records)? Report findings @ -No old charts were reviewed Differential Diagnosis (chest pain, altered mental status, abdominal pain women, abdominal pain men, vaginal bleeding, weakness, fever, dyspnea, syncope, headache, dizziness, GI bleed, back pain, seizure, CVA, palpatations, mental health, musculoskeletal)? @ -not applicable EKG interpreted by me (3pts min.). @ -None done X-rays interpreted by me (1pt min.). @ -None done CT interpreted by me (1pt min.). @ -None done U/S interpreted by me (1pt. min.). @ -None done What testing was considered but not performed or refused? (CT, X-rays, U/S, labs)? Why? @ -None What meds were considered but not given or refused? Why? @ -None Did you discuss the management of the patient with other professionals (professionals i.e. , VIDHI, MANAGER CRISIS, lab, RT, psych nurse, social science analyst, grey goods tester, teacher, reserve officer, rn field case manager)? Give summary @ -No Was smoking cessation discussed for >3mins.? @ -No Was critical care preformed (if so, how long)? @ -No Were there social determinants of health that impacted care today? How? (Homelessness, low income, unemployed, alcoholism, drug addiction, transportation, low edu. Level, literacy, decrease access to med. care, longterm, rehab)? @ -No Was there de-escalation of care discussed even if they declined (Discuss DNR or withdrawal of care, Hospice)? DNR status @ -No What co-morbidities impacted this encounter? (DM, HTN, Smoking, COPD, CAD, Cancer, CVA, ARF, Chemo, Hep., AIDS, mental health diagnosis, sleep apnea, morbid obesity)? @ -None Was patient admitted / discharged? Hospital course, mention meds given and route, prescriptions, significant lab abnormalities, going to OR and other pertinent info. @ -Long discussion with patient regarding symptoms, treatment to date along with onset, exam findings and normal visual acuity. No indication for any laboratory studies, diagnostic imaging or medication administration at this time. Advised that symptoms are consistent with post viral reactive conjunctivitis and likely her previous dose of prednisone eyedrops was not a long enough duration to resolve her symptoms. Also discussed hypertension factors that cause hypertension/elevated blood pressure in the was not diagnosed with hypertension. Encouraged monitoring of blood pressure daily and keeping a log to take to her upcoming primary care provider's appointment. Advised low salt diet and reduction of stressors if possible. Patient was concerned regardi ng restarting prednisone drops however discussed appropriate treatment and risk factors with short course of steroids versus long-term steroid use. Patient is agreeable to resume ophthalmic prednisolone drops, schedule an appointment with ophthalmology and her primary care provider as scheduled. Will discharge home in stable condition on prednisolone ophthalmic drops for reactive conjunctivitis along with blood pressure monitoring for new onset of high blood pressure advising follow-up with ophthalmology and primary care provider. Undiagnosed new problem with uncertain prognosis? @ -No Drug Therapy requiring intensive monitoring for toxicity (Heparin, Nitro, Insulin, Cardizem)? @ -No Were any procedures done? @ -No Diagnosis/symptom? @ -Bilateral conjunctivitis Acute, or Chronic, or Acute on Chronic? @ -Acute Uncomplicated (without systemic symptoms) or Complicated (systemic symptoms)? @ -Uncomplicated Side effects of treatment? @ -No Exacerbation, Progression, or Severe Exacerbation? @ -No Poses a threat to life or bodily function? How? (Chest pain, [place], [place], pneumonia, PE, COPD, DKA, ARF, appy, cholecystitis, CVA, Diverticulitis, Homicidal, Suicidal, threat to staff... and all critical care pts) @ -No Diagnosis/symptom? @ -Hypertension Acute, or Chronic, or Acute on Chronic? @ -Acute Uncomplicated (without systemic symptoms) or Complicated (systemic symptoms)? @ -Uncomplicated Side effects of treatment? @ -none Exacerbation, Progression, or Severe Exacerbation] @ -no Poses a threat to life or bodily function? @ -no Case discussed Dr. Phillips Disposition Clinical Impression: Bilateral conjunctivitis, Hypertension Disposition: HOME SELF-CARE Condition: Stable Instructions (If sedation given, give patient instructions): Hypertension (ED), Conjunctivitis (ED) Additional Instructions: Please complete course of ophthalmic steroid as prescribed. Please follow-up with ophthalmology. Avoid rubbing your eyes. Use of antihistamines such as Claritin or Benadryl may help with itching and eye redness. Please monitor your blood pressure daily and keep a blood pressure log for your primary care provider follow-up appointment on 03/05/2023. Please return to the Emergency Department if symptoms worsen or any other concerns. Prescriptions: prednisoLONE ACETATE 1% OPHTH [Pred Forte 1%] 2 drops BOTH EYES Q6HR 10 Days #15 ml Is patient prescribed a controlled substance at d/c from ED?: No Referrals: Eder Allen DO [Primary Care Provider] - 1-2 days Lynn Newell MD [STAFF PHYSICIAN] - 1-2 days Time of Disposition: 13:35
[2023-03-01 13:51] VITALS: BP 142/97; PULSE 70; RESP 18
== END 2023-03-01 13:50 | disposition home or self-care (01) ==
LOC: EC 11:36
DX: H10.9 Unspecified conjunctivitis (principal); I10 Essential (primary) hypertension; J45.909 Unspecified asthma, uncomplicated; M19.90 Unspecified osteoarthritis, unspecified site; Z88.0 Allergy status to penicillin; Z88.6 Allergy status to analgesic agent; Z79.1 Long term (current) use of non-steroidal anti-inflammatories (NSAID); Z79.899 Other long term (current) drug therapy
CPT/HCPCS: 99283

== ENCOUNTER → 2023-09-07 | Outpatient (CLI) | payer MEDICARE | END | disposition home or self-care (01) | LOC: LABWHC1 13:07 | PROVIDERS: ATTEND Otolaryngology | DX: J30.89 Other allergic rhinitis (principal) | CPT/HCPCS: 36415 ==

== ENCOUNTER → 2023-09-11 | Outpatient (CLI) | payer MEDICARE ==
--- NOTE | 2023-09-12 19:57 | MM ---
Reason for Exam: Screening (asymptomatic). Last mammogram was performed 1 year(s) and 1 month(s) ago. Patient History: Menarche at age 11. First Full-Term at age 31. Late child-bearing (after 30). Postmenopausal. Patient has history of breast feeding. Patient used Estrogen for 1 year. Patient used Progesterone for 1 year. Paternal aunt had breast cancer, age 50. Risk Values: Onelia 5 year model risk: 2.4%. NCI Lifetime model risk: 5.6%. Prior Study Comparison: 07/21/2022 Bilateral MG 3D screening mammo w/cad, [facility]. 07/27/2022 Left MG 3D work up w/cad LT, [facility]. 11/28/2022 Left MG 3D diag mammo w/cad LT, [facility]. Tissue Density: The breast tissue is heterogeneously dense. This may lower the sensitivity of mammography. Findings: Analyzed By CAD. Bilateral dermal calcifications are noted. Anterior nodule along the outer aspect of the left cc view is more defined. This may represent superimposition shadow but further evaluation is recommended. Otherwise, no significant change. Overall Assessment: Incomplete: need additional imaging evaluation, BI-RAD 0 Management: Special View Mammogram of the left breast. Diagnostic Breast Ultrasound of the left breast. Additional views to include spot 3-D CC, 3-D CC rolled, and 3-D ML views. Targeted left breast ultrasound if any persisting abnormality. [facility] will attempt to contact patient to return for supplemental views and ultrasound if indicated. Electronically signed and approved by: Naz Guillory M.D. Radiologist
== END | disposition home or self-care (01) ==
LOC: RADMAMWWP 14:09
PROVIDERS: ATTEND Family Medicine
DX: Z12.31 Encounter for screening mammogram for malignant neoplasm of breast (principal); Z80.3 Family history of malignant neoplasm of breast; Z78.0 Asymptomatic menopausal state
CPT/HCPCS: 77063; 77067

== ENCOUNTER → 2023-09-18 | Outpatient (CLI) | payer MEDICARE ==
--- NOTE | 2023-09-18 09:06 | MM ---
Reason for Exam: Additional evaluation requested from abnormal screening. Last screening mammogram was performed less than 1 month ago. Patient History: Menarche at age 11. First Full-Term at age 31. Late child-bearing (after 30). Postmenopausal. Patient has history of breast feeding. Patient used Estrogen for 1 year. Patient used Progesterone for 1 year. Paternal aunt had breast cancer, age 50. Risk Values: Onelia 5 year model risk: 2.4%. NCI Lifetime model risk: 5.6%. Prior Study Comparison: 01/10/2018 Bilateral Screening Mammogram, [facility]. 02/17/2019 Bilateral Screening Mammogram, [facility]. 05/20/2020 Bilateral Screening Mammogram, [facility]. 06/13/2021 Bilateral Screening Mammogram, [facility]. 07/21/2022 Bilateral MG 3D screening mammo w/cad, [facility]. 07/27/2022 Left MG 3D work up w/cad LT, [facility]. 11/28/2022 Left MG 3D diag mammo w/cad LT, [facility]. 09/11/2023 Bilateral MG 3D screening mammo w/cad, [facility]. Tissue Density: Left: The breast tissue is heterogeneously dense. This may lower the sensitivity of mammography. Findings: Analyzed By CAD. Nodular density appears to be less conspicuous. Six-month follow-up mammography advised. Overall Assessment: Probably benign, BI-RAD 3 Management: Diagnostic Mammogram of the left breast in 6 months. . Results were given to the patient verbally at the time of exam. Patient should continue monthly self-breast exams. A clinical breast exam by your physician is recommended on an annual basis. This exam should not preclude additional follow-up of suspicious palpable abnormalities. Note on Onelia scores and lifetime risk: 1. A Onelia score greater than 3% is considered moderate risk. If this is the case, consider specialist referral to assess eligibility for a risk reducing agent. 2. If overall lifetime risk for the development of breast cancer is 20% or higher, the patient may qualify for future screening with alternating mammogram and breast MRI. Electronically signed and approved by: Bill Roper M.D. Radiologis
== END | disposition home or self-care (01) ==
LOC: RADMAMWWP 08:34
PROVIDERS: ATTEND Family Medicine
DX: R92.8 Other abnormal and inconclusive findings on diagnostic imaging of breast (principal); Z78.0 Asymptomatic menopausal state; Z80.3 Family history of malignant neoplasm of breast
CPT/HCPCS: 77065; G0279; 77061

== ENCOUNTER → 2024-04-25 | Outpatient (CLI) | payer MEDICARE ==
--- NOTE | 2024-04-25 15:19 | MM ---
Reason for Exam: Follow-up at short interval from prior study. Last screening mammogram was performed 8 month(s) ago. Patient History: Menarche at age 11. First Full-Term at age 31. Late child-bearing (after 30). Postmenopausal. Patient has history of breast feeding. Patient used Estrogen for 1 year. Patient used Progesterone for 1 year. Paternal aunt had breast cancer, age 50. Risk Values: Onelia 5 year model risk: 2.4%. NCI Lifetime model risk: 5.6%. Prior Study Comparison: 11/28/2022 Left MG 3D diag mammo w/cad LT, [facility]. 09/11/2023 Bilateral MG 3D screening mammo w/cad, [facility]. 09/18/2023 Left MG 3D work up w/cad LT, [facility]. Tissue Density: Left: The breasts are extremely dense, which lowers the sensitivity of mammography. Findings: Analyzed By CAD. No evidence for persistent nodule or mass. Overall Assessment: Benign, BI-RAD 2 Management: Screening Mammogram of both breasts in 6 months. . Results were given to the patient verbally at the time of exam. Patient should continue monthly self-breast exams. A clinical breast exam by your physician is recommended on an annual basis. This exam should not preclude additional follow-up of suspicious palpable abnormalities. Note on Onelia scores and lifetime risk: 1. A Onelia score greater than 3% is considered moderate risk. If this is the case, consider specialist referral to assess eligibility for a risk reducing agent. 2. If overall lifetime risk for the development of breast cancer is 20% or higher, the patient may qualify for future screening with alternating mammogram and breast MRI. Electronically signed and approved by: Bill Roper M.D. Radiologis
== END | disposition home or self-care (01) ==
LOC: RADMAMWWP 14:41
PROVIDERS: ATTEND Family Medicine
CPT/HCPCS: 77061; 77065

== ENCOUNTER → 2024-12-15 | Outpatient (CLI) | payer MEDICARE ==
--- NOTE | 2024-12-16 08:04 | MM ---
Reason for Exam: Screening (asymptomatic). Last mammogram was performed 1 year(s) and 4 month(s) ago. Patient History: Menarche at age 11. First Full-Term at age 31. Late child-bearing (after 30). Postmenopausal. Patient has history of breast feeding. Patient used Estrogen for 1 year. Patient used Progesterone for 1 year. Paternal aunt had breast cancer, age 50. Risk Values: Onelia 5 year model risk: 2.4%. NCI Lifetime model risk: 5.3%. Prior Study Comparison: 09/11/2023 Bilateral MG 3D screening mammo w/cad, [facility]. 09/18/2023 Left MG 3D work up w/cad LT, [facility]. 04/25/2024 Left MG 3D diag mammo w/cad LT, [facility]. Tissue Density: The breasts are heterogeneously dense, which may obscure small masses. Findings: Analyzed By CAD. Right breast: There is no suspicious group of microcalcifications or new suspicious mass. Left breast: There is no suspicious group of microcalcifications or new suspicious mass. Overall Assessment: Negative, BI-RAD 1 Management: Screening Mammogram of both breasts in [address] [facility] will attempt to contact patient to return for supplemental views and ultrasound if indicated. Patient should continue monthly self-breast exams. A clinical breast exam by your physician is recommended on an annual basis. This exam should not preclude additional follow-up of suspicious palpable abnormalities. Note on Onelia scores and lifetime risk: 1. A Onelia score greater than 3% is considered moderate risk. If this is the case, consider specialist referral to assess eligibility for a risk reducing agent. 2. If overall lifetime risk for the development of breast cancer is 20% or higher, the patient may qualify for future screening with alternating mammogram and breast MRI. [facility], , 12/16/2024 8:01 AM. Electronically signed and approved by: Dedrick Head DO
== END | disposition home or self-care (01) ==
LOC: RADMAMWWP 15:08
PROVIDERS: ATTEND Family Medicine
DX: Z12.31 Encounter for screening mammogram for malignant neoplasm of breast (principal); R92.333 Mammographic heterogeneous density, bilateral breasts; Z78.0 Asymptomatic menopausal state; Z80.3 Family history of malignant neoplasm of breast
CPT/HCPCS: 77063; 77067

== ENCOUNTER 2025-03-13 13:25 | Day surgery (SDC) | payer MEDICARE ==
[2025-03-09 11:11] VITALS: BMI 26.6
[2025-03-13 14:51] VITALS: TEMP 97.2
[2025-03-13] MEDS: LACTATED RINGERS 1,000 ML IV SCH (14:57)
[2025-03-13] MEDS: IV FLUID CONTINUATION 1,000 ML IV ONE (14:57)
[2025-03-13] MEDS ORDERED: PROPOFOL 10 MG/ML 20 ML VIAL IV ONE (15:17)
--- NOTE | 2025-03-13 15:38 | P.PCN ---
Date of Procedure: 03/13/25 Procedure(s) Performed: BRIEF HISTORY: Patient is a 74-year-old pleasant white female scheduled for an elective colonoscopy as a part of screening for history of colon polyps. Last colonoscopy was 5 years ago. PROCEDURE PERFORMED: Colonoscopy cold snare polypectomy. PREOPERATIVE DIAGNOSIS: Screening for history of colon polyps. IV sedation per Anesthesia. PROCEDURE: After informed consent was obtained, the patient, was brought into the endoscopy unit. IV sedation was administered by Anesthesia under continuous monitoring. Digital rectal examination was normal. Initially the Olympus CF-160 flexible video colonoscope was then inserted in the rectum, gradually advanced into the cecum without any difficulty. Careful examination was performed as the scope was gradually being withdrawn. Ileocecal valve and the appendiceal orifice were visualized and appeared normal. Prep was excellent. Mucosa of the cecum, ascending colon, transverse colon, appeared normal. In the descending colon there was a 5 mm sessile polyp that was removed by cold snare polypectomy. Descending colon, sigmoid colon, and rectum appeared normal. Scattered sigmoid diverticulosis. Retroflexion was performed in the rectum and no lesions were seen. The patient tolerated the procedure well. IMPRESSION: 5 mm descending colon polyp status post cold snare polypectomy Scattered sigmoid diverticulosis RECOMMENDATIONS: Findings of this examination were discussed with the patient as well as her family. She was advised to follow-up with the biopsy results. If the biopsy reveals adenoma she can have repeat colonoscopy in 5 years..
[2025-03-13 16:05] VITALS: RESP 16
[2025-03-13 16:32] VITALS: BP 153/90; PULSE 60
== END 2025-03-13 16:48 | disposition home or self-care (01) ==
LOC: ORWHC2ENDO 13:25
PROVIDERS: ATTEND Internal Medicine Gastroenterology
DX: Z86.0100 Personal history of colon polyps, unspecified
CPT/HCPCS: 45385; 88305